=== PATIENT | female | born 1990 | race African-American/Black ===

== ENCOUNTER 2016-11-21 23:12 | Observation (INO) | payer MEDICAID ==
[~2016-11-21] VITALS: Ht 177.8 cm; Wt 103.4 kg
[2016-11-22] MEDS ORDERED: PREN-55 PO (00:23)
[2016-11-22] MEDS ORDERED: CYAN10009 PO (00:23)
[2016-11-22] MEDS ORDERED: LACTATED RINGERS 1,000 ML IV SCH (00:45)
[2016-11-22 01:12] LABS: CLARITY URINE CLEAR (CLEAR); COLOR URINE YELLOW (YELLOW); GLUCOSE URINE NEGATIVE (NEGATIVE); KETONES URINE NEGATIVE (NEGATIVE); LEUKOCYTE ESTERASE URINE NEGATIVE (NEGATIVE); NITRITE URINE NEGATIVE (NEGATIVE); OCCULT BLOOD URINE TRACE (NEGATIVE); PH URINE 6.5 (4.5-8.0); PROTEIN URINE NEGATIVE (NEGATIVE); SPECIFIC GRAVITY URINE 1.012 (1.005-1.030)
[2016-11-22] MEDS ORDERED: CEFAZOLIN 2,000 MG in DEXT 5% WATER 100 ML IV NR (02:00)
== END 2016-11-22 03:00 | disposition home or self-care (01) ==
LOC: L&D 23:12
PROVIDERS: ADMIT Obstetrics & Gynecology; ATTEND Obstetrics & Gynecology
DX: O26.892 Other specified pregnancy related conditions, second trimester (principal); M54.9 Dorsalgia, unspecified; Z3A.25 25 weeks gestation of pregnancy
CPT/HCPCS: 81001; 96360; 96361; 96365; 96375; 99281; G0378; J0690; J7060

== ENCOUNTER 2017-02-05 09:39 | Observation (INO) | payer MEDICAID ==
[~2017-02-05 09:39] MED LIST: CYAN10009 PO; PREN-55 PO
== END 2017-02-05 10:55 | disposition home or self-care (01) ==
LOC: L&D 09:39
PROVIDERS: ADMIT Specialist; ATTEND Specialist
DX: O26.893 Other specified pregnancy related conditions, third trimester (principal); R10.30 Lower abdominal pain, unspecified; M54.5 Low back pain; Z3A.36 36 weeks gestation of pregnancy
CPT/HCPCS: 99281; G0378